=== PATIENT | male | born 1985 | race Caucasian/White ===

== ENCOUNTER 2022-03-21 08:48 | Day surgery (SDC) | payer BC ==
[~2022-03-21] VITALS: Ht 172.7 cm; Wt 73.8 kg
[2022-03-21 09:38] VITALS: BP 126/94; PULSE 66; TEMP 97.5
[2022-03-21] MEDS ORDERED: ZESTRIL 10MG10 MG PO (09:44)
[2022-03-21] MEDS ORDERED: CARDIZEM120 MG PO ×2 (09:44→09:45)
[2022-03-21] MEDS ORDERED: ALAVERT10 M1 PO (09:44)
[2022-03-21] MEDS ORDERED: MASON NATURAL2000 IU PO (09:45)
[2022-03-21 10:35] VITALS: BP 117/75; PULSE 65
[2022-03-21 10:50] VITALS: BP 127/93; PULSE 64
[2022-03-21 11:05] VITALS: BP 126/88; PULSE 63; TEMP 96.9
--- NOTE | 2022-03-21 11:42 | NUR ---
1035 PT RETURNED TO [facility] VIA CART. TRANSFERRED TO CHAIR WITH RN ASSIST. ALERT AND ORIENTED. MONITORS ATTACHED, INTERVALS AND ALARMS SET. VSS. PT DENIES PAIN OR NAUSEA. FOOD AND DRINK PROVIDED. CALL LIGHT IN REACH. 1050 VSS. PT DENIES DISCOMFORT. TOLERATING FOOD AND DRINK WELL. 1105 VSS. PT DENIES DISCOMFORT. REVIEWED DISCHARGE INSTRUCTIONS AND EDUCATION MATERIAL, ANSWERED ALL QUESTIONS. IV REMOVED WITHOUT COMPLICATIONS. PT ALLOWED TO DRESS. 1142 TRANSFERRED PT VIA WHEELCHAIR TO PERSONAL VEHICLE TO BE DRIVEN HOME BY .
== END 2022-03-21 11:42 | disposition home or self-care (01) ==
LOC: SDCO 08:48
DX: K92.1 Melena (principal); K64.0 First degree hemorrhoids; F41.9 Anxiety disorder, unspecified
CPT/HCPCS: J2704; J7120